=== PATIENT | male | born 1965 | race Caucasian/White ===

== ENCOUNTER 2020-07-07 22:34 | Emergency (ER) | payer MEDICARE, MEDICAID ==
[2020-07-07] MEDS ORDERED: Ketorolac Tromethamine 30 MG/ML VIAL ONE (23:03)
== END 2020-07-08 00:33 | disposition home or self-care (01) ==
LOC: ERS 22:34 → SDC 23:39 → ERS 07-08 00:33
DX: M79.651 Pain in right thigh (principal); R79.1 Abnormal coagulation profile
CPT/HCPCS: 96374; J1885

== ENCOUNTER 2020-08-08 11:43 | Emergency (ER) | payer MEDICAID, MEDICARE ==
[2020-08-08] MEDS ORDERED: Aspirin Chewable 81 MG TAB ONE (12:42)
[2020-08-08 12:45] LABS: #Basophils 0.1 thou/uL (0.0-0.2); #Eosinphils 0.2 thou/uL (0.0-0.7); #Lymphocytes 2.1 thou/uL (1.20-3.40); #Monocytes 0.4 thou/uL (0.11-0.59); #Neutrophils 5.1 thou/uL (1.40-6.50); %Basophils 0.8 % (0.0-1.0); %Eosinophils 2.5 % (0.0-10.0); %Lymphocytes 26.5 % (21.0-51.0); %Monocytes 4.7 % (0.0-10.0); %Neutrophils 65.5 % (42.0-75.0); Hemoglobin 14.8 g/dL (14.0-18.0); Mean Corpuscular HGB CONC 34.9 g/dL (32.0-36.0); Mean Corpuscular Hemoglobin 33.1 pg (27.0-31.0); Mean Corpuscular Volume 94.8 fL (78.0-98.0); Mean Platelet Volume 7.4 fL (7.4-10.4); Platelet Count 247 thou/uL (130-400); RBC Distribution Width 12.1 % (11.5-14.5); Red Blood Cell (RBC) Count 4.47 mill/uL (4.70-6.10); White Blood Cell (WBC) Count 7.8 thou/uL (4.8-10.8)
[2020-08-08 13:11] LABS: ALT (SGPT) 29 U/L (8-55); AST (SGOT) 17 U/L (5-34); Alkaline Phosphatase 94 U/L (40-110); Anion Gap 12 mmol/L (10-20); BUN (Urea Nitrogen) 9 mg/dL (8.4-25.7); Bilirubin, Total 0.7 mg/dL (0.2-1.2); Calc. Creatinine Clearance 0 mL/min (70-130); Calcium 9.7 mg/dL (7.8-10.44); Carbon Dioxide 26 mmol/L (22-29); Chloride 108 mmol/L (98-107); Globulin 2.7 g/dL (2.4-3.5); Glucose 107 mg/dL (70-105); Potassium 3.5 mmol/L (3.5-5.1); Protein, Total 6.7 g/dL (6.0-8.3); Sodium 142 mmol/L (136-145)
[2020-08-08] MEDS ORDERED: Ketorolac Tromethamine 30 MG/ML VIAL ONE (15:30)
== END 2020-08-08 16:57 | disposition home or self-care (01) ==
LOC: ERS 11:43
DX: R07.89 Other chest pain (principal); Z79.899 Other long term (current) drug therapy; Z86.69 Personal history of other diseases of the nervous system and sense organs
CPT/HCPCS: 36415; 71045; 80053; 83605; 84484; 85025; 85379; 93005; 94760; 96374; J1885